=== PATIENT | male | born 1945 | race Caucasian/White ===

== ENCOUNTER 2018-04-07 07:23 | Day surgery (SDC) | payer MEDICARE, BC ==
[2018-04-07] MEDS: LACTATED RINGER'S 1,000 ML IV* (07:00)
[~2018-04-07 07:23] MED LIST: SUCCINYLCHOLINE CHLORIDE 100 MG/5 ML SYG IV
[2018-04-07] MEDS ORDERED: GLYCOPYRROLATE 0.4 MG INJ (07:45)
[2018-04-07] MEDS ORDERED: FENTAnyl 50 MCG/ML VIAL (07:45)
[2018-04-07] MEDS ORDERED: ROCURONIUM 50 MG INJ (07:45)
[2018-04-07] MEDS ORDERED: PROPOFOL 20 ML (07:45)
[2018-04-07] MEDS ORDERED: DEXAMETHASONE 4 MG/ML 1 ML INJ (07:45)
[2018-04-07] MEDS ORDERED: NEOSTIGMINE 3 MG/3 ML SYRINGE (07:45)
[2018-04-07] MEDS ORDERED: MIDAZOLAM 1 MG/ML 2 ML INJ (07:45)
[2018-04-07] MEDS ORDERED: LIDOCAINE 2% (SDV) 5 ML INJ (07:45)
[2018-04-07] MEDS ORDERED: ONDANSETRON 4 MG INJ (07:46)
[2018-04-07] MEDS ORDERED: SUCCINYLCHOLINE CHLORIDE 100 MG/5 ML SYG IV (07:56)
[2018-04-07] MEDS ORDERED: SUGAMMADEX SODIUM 200 MG/2 ML VIAL IV (09:10)
[2018-04-07] MEDS: POLYMYXIN/BACITRACIN 1L IRRIG (09:45)
[2018-04-07] MEDS: BUPIVACAINE 0.25% (MPF) 30 ML INJ (09:45)
[2018-04-07] MEDS: CEFAZOLIN 2 GM/50 ML (PMX) 50 ML IVPB (10:10)
[2018-04-07] MEDS ORDERED: hydrALAzine 20 MG INJ (10:43)
[2018-04-07] MEDS ORDERED: PHENYLephrine (100 MCG/ML) 5ML SYG (10:59)
[2018-04-07] MEDS ORDERED: FUROSEMIDE 20 MG INJ (11:35)
[2018-04-07] MEDS ORDERED: FLUMAZENIL 0.5 MG INJ (12:03)
[2018-04-07] MEDS ORDERED: NALOXONE (0.4 MG/ML) INJ (12:03)
[2018-04-07] MEDS ORDERED: PROCHLORPERAZINE 10 MG TAB PO (12:30)
[2018-04-07] MEDS ORDERED: CEPASTAT LOZENGE MT (12:30)
[2018-04-07] MEDS ORDERED: TRIMETHOBENZAMIDE 100 MG/ML VIAL IM (12:30)
[2018-04-07] MEDS ORDERED: ONDANSETRON 4 MG INJ IV (12:30)
[2018-04-07] MEDS ORDERED: DIAZEPAM 5 MG/ML SYG IM (12:30)
[2018-04-07] MEDS ORDERED: NACL 0.9% 3 ML SYG IV (12:30)
[2018-04-07] MEDS ORDERED: NALOXONE (0.4 MG/ML) INJ IV (12:30)
[2018-04-07] MEDS ORDERED: ACETAMINOPHEN 325 MG TAB PO (12:30)
[2018-04-07] MEDS ORDERED: DIPHENHYDRAMINE 50 MG CAP PO (12:30)
[2018-04-07] MEDS: HYDROmorphONE 0.2 MG/ML PCA IV (12:39)
[2018-04-07] MEDS ORDERED: ALBUTEROL 0.083% (NEB) 2.5 MG/3 ML AMP (12:50)
[2018-04-07] MEDS ORDERED: HYDROmorphONE 1 MG/5 ML IV SYRINGE IV (13:00)
[2018-04-07] MEDS ORDERED: FENTAnyl 50 MCG/ML VIAL IV ×3 (13:00)
[2018-04-07] MEDS ORDERED: hydrALAzine 20 MG INJ IV (13:00)
[2018-04-07] MEDS ORDERED: MEPERIDINE 25 MG INJ IV (13:00)
[2018-04-07] MEDS ORDERED: METOCLOPRAMIDE 10 MG INJ IV (13:00)
[2018-04-07] MEDS ORDERED: LABETALOL HCL 20MG INJ IV (13:00)
[2018-04-07] MEDS ORDERED: EPHEDrine SULFATE 50 MG/5 ML SYG IV (13:00)
[2018-04-07] MEDS: ONDANSETRON 4 MG INJ IV (13:08)
[2018-04-07] MEDS: HYDROmorphONE 1 MG/5 ML IV SYRINGE IV ×2 (13:09→13:18)
[2018-04-07] MEDS: ALBUTEROL 0.083% (NEB) 2.5 MG/3 ML AMP HHN (13:12)
[2018-04-07] MEDS: DEXTROSE 5%-0.45% NACL 1,000 ML IV ×2 (14:46→22:07)
[2018-04-07] MEDS: DIAZEPAM 5 MG TAB PO (15:34)
[2018-04-07] MEDS: CEFAZOLIN 1 GM/50 ML (PMX) 50 ML IVPB ×2 (18:17→23:06)
[2018-04-07] MEDS: BUPROPION (SR) 150 MG TAB PO ×2 (21:00→23:01)
[2018-04-07] MEDS: PRAMIPEXOLE 0.25 MG TAB PO ×3 (21:00→23:01)
[2018-04-07] MEDS: RANITIDINE 150 MG TAB PO (21:30)
[2018-04-08] MEDS: DEXTROSE 5%-0.45% NACL 1,000 ML IV ×2 (02:07→08:07)
[2018-04-08 05:15] LABS: HEMATOCRIT 42.4 % (42.0-52.0); HEMOGLOBIN 13.8 g/dl (14.0-18.0)
[2018-04-08] MEDS: CEFAZOLIN 1 GM/50 ML (PMX) 50 ML IVPB ×2 (05:30→12:57)
[2018-04-08 05:49] LABS: ANION GAP 9 (5-13); BLOOD UREA NITROGEN 17 mg/dl (7-20); CARBON DIOXIDE 25 mmol/L (21-31); CHLORIDE 107 mmol/L (97-110); CREATININE 1.37 mg/dl (0.61-1.24); GLUCOSE 116 mg/dl (70-220); POTASSIUM 4.2 mmol/L (3.5-5.1); SODIUM 141 mmol/L (135-144)
[2018-04-08] MEDS ORDERED: BETHANECHOL 25 MG TAB PO (08:00)
[2018-04-08] MEDS: DOCUSATE SODIUM 250 MG CAP PO (08:44)
[2018-04-08] MEDS: FERROUS SULFATE (EC) 325 MG TAB PO ×3 (08:44→21:02)
[2018-04-08] MEDS: RANITIDINE 150 MG TAB PO ×2 (08:44→21:03)
[2018-04-08] MEDS: ASCORBIC ACID 500 MG TAB PO ×2 (08:44→21:03)
[2018-04-08] MEDS: PRAMIPEXOLE 0.25 MG TAB PO ×2 (08:44→21:02)
[2018-04-08] MEDS: HYDROCODONE/APAP (5/325) TAB PO ×4 (08:45→21:05)
[2018-04-08] MEDS: BUPROPION (SR) 150 MG TAB PO ×2 (08:45→21:03)
[2018-04-08] MEDS ORDERED: DOCUSATE SODIUM 100 MG CAP PO (09:00)
[2018-04-08] MEDS: BETHANECHOL 25 MG TAB PO (12:58)
[2018-04-08 14:00] LABS: ADD UMIC YES; UR ASCORBIC ACID NEGATIVE (NEGATIVE); UR BILIRUBIN (Dip) NEGATIVE (NEGATIVE); UR BLOOD (Dip) 3+ mg/dL (NEGATIVE); UR CLARITY CLEAR (CLEAR); UR COLOR STRAW (YELLOW); UR GLUCOSE (Dip) NEGATIVE (NEGATIVE); UR KETONES (Dip) NEGATIVE (NEGATIVE); UR LEUKOCYTE ESTERASE (Dip) NEGATIVE Leu/ul (NEGATIVE); UR MUCUS FEW /HPF (NONE SEEN); UR NITRITE (Dip) NEGATIVE (NEGATIVE); UR RBC 1 /HPF (0-5); UR SPECIFIC GRAVITY (Dip) 1.004 (1.003-1.030); UR TOTAL PROTEIN (Dip) NEGATIVE (NEGATIVE); UR UROBILINOGEN (Dip) NEGATIVE (NEGATIVE); UR WBC 1 /HPF (0-5)
[2018-04-09] MEDS: AL HYDROX/MG HYDROX/SIMETH 30 ML CUP PO (05:33)
[2018-04-09] MEDS: BUPROPION (SR) 150 MG TAB PO (08:46)
[2018-04-09] MEDS: FERROUS SULFATE (EC) 325 MG TAB PO (08:46)
[2018-04-09] MEDS: NA PHOSPHATE/BIPHOS 133 ML ENEMA PR (08:46)
[2018-04-09] MEDS: PRAMIPEXOLE 0.25 MG TAB PO (08:46)
[2018-04-09] MEDS: ASCORBIC ACID 500 MG TAB PO (08:46)
[2018-04-09] MEDS: DOCUSATE SODIUM 250 MG CAP PO (08:46)
[2018-04-09] MEDS: RANITIDINE 150 MG TAB PO (08:46)
[2018-04-09] MEDS ORDERED: LACTULOSE 30ML CUP NGT (10:30)
[2018-04-09] MEDS: LACTULOSE 30ML CUP PO (10:45)
== END 2018-04-09 13:17 | disposition home or self-care (01) ==
LOC: REC 07:23 → MS1 14:14 → SDS 07:23 → MS1 07:23 → SDS 04-09 13:17
DX: M51.26 Other intervertebral disc displacement, lumbar region (principal)
CPT/HCPCS: 63030; 72020; 80048; 81001; 85014; 85018; 86850; 86900; 86901; 86920; 87086; 88304; 88311; 97116; 97162; 97530